=== PATIENT | female | born 1945 | race Caucasian/White ===

== ENCOUNTER → 2017-08-27 | Outpatient (CLI) | payer MEDICARE, OTHER | LOC: M.RAD 10:20 | DX: Z12.31 Encounter for screening mammogram for malignant neoplasm of breast (principal) ==

== ENCOUNTER → 2018-03-10 | Outpatient (CLI) | payer MEDICARE, OTHER | LOC: M.RAD 11:30 | DX: M85.89 Other specified disorders of bone density and structure, multiple sites (principal); Z78.0 Asymptomatic menopausal state ==

== ENCOUNTER → 2018-09-17 | Outpatient (CLI) | payer MEDICARE, OTHER | LOC: M.RAD 12:38 | DX: Z12.31 Encounter for screening mammogram for malignant neoplasm of breast (principal) ==

== ENCOUNTER → 2019-04-22 | Outpatient (CLI) | payer MEDICARE, OTHER ==
--- NOTE | ~2019-04-22 | EEG ---
[address] [address] EEG STUDY REPORT Name: NAYANADEMETRIMARIA ESTHER RAINES Room: [facility]#: [id number] Admission: 04/22/19 Attend Phys: Hilton Ray MD Discharge: Date of : 45 Report #: [id number] THIS REPORT FOR: //name// CC: Hazel Ray DATE OF SERVICE: 04/22/2019 This patient is being evaluated for tremor versus seizure. EEG was done by placing the electrode by standard 10-20 system of electrode placement. Both referential and sequential montages were used for recording. Background activity in this patient's EEG is about 8-9 Hz and 30 microvolt. It is intermixed with theta range slowing on both sides. Photic stimulation is unremarkable. Throughout the record, no active epileptiform activity was noticed. IMPRESSION: This EEG is intermixed with some theta range slowing on both sides. That is a nonspecific abnormality, which can occur with dementia, encephalopathy, effect of psychotropic medication. No active epileptiform activity was noticed during this record. By: [id number] 1922Pconner Ray MD /nt
== END ==
LOC: M.CRD 04-20 11:18 → M.MRI 10:37
DX: R90.82 White matter disease, unspecified (principal); G93.6 Cerebral edema; Z87.898 Personal history of other specified conditions

== ENCOUNTER → 2019-10-22 | Outpatient (CLI) | payer MEDICARE, OTHER | LOC: M.RAD 09:03 | PROVIDERS: ATTEND Family Medicine | DX: Z12.31 Encounter for screening mammogram for malignant neoplasm of breast (principal) ==

== ENCOUNTER → 2020-01-11 | Outpatient (CLI) | payer MEDICARE, OTHER | LOC: M.MRI 11:02 | PROVIDERS: ATTEND Family Medicine | DX: M47.812 Spondylosis without myelopathy or radiculopathy, cervical region (principal); M48.02 Spinal stenosis, cervical region; M25.78 Osteophyte, vertebrae ==

== ENCOUNTER → 2020-02-01 | Outpatient (CLI) | payer MEDICARE, OTHER ==
[~2020-02-01] MED LIST: ADVIL200 M3 PO; GLUCOSAMINE CH1 EAC4 PO; L-LYSINE500 M1 PO; LEVO-T50 MCG PO; LIPITOR40 MG PO; MELATONIN5 MG SUBLING; OMEGA-3 FISH1200 MG PO; OMEPRAZOLE 20 M20 M1 PO; PROBIOTIC1 EAC5 PO; PROZAC20 MG PO; TENORMIN25 MG PO; TYLENOL325 MG PO; VITAMIN C1000 MG PO; VITAMIN D PO; ZANAFLEX4 M1 PO
== END ==
LOC: M.PC 10:51
PROVIDERS: ATTEND Physical Medicine & Rehabilitation
DX: M50.121 Cervical disc disorder at C4-C5 level with radiculopathy (principal); M48.02 Spinal stenosis, cervical region; M50.10 Cervical disc disorder with radiculopathy, unspecified cervical region; M47.22 Other spondylosis with radiculopathy, cervical region

== ENCOUNTER → 2020-11-09 | Outpatient (CLI) | payer MEDICARE, OTHER | LOC: M.RAD 12:35 | PROVIDERS: ATTEND Family Medicine | DX: Z12.31 Encounter for screening mammogram for malignant neoplasm of breast (principal); N64.89 Other specified disorders of breast ==